=== PATIENT | female | born 1980 | race Caucasian/White ===

== ENCOUNTER → 2020-03-16 | Outpatient (CLI) | payer BC | END | disposition home or self-care (01) | LOC: COVID19 15:35 | PROVIDERS: ATTEND Family Medicine | DX: U07.1 COVID-19 (principal) ==

== ENCOUNTER → 2025-03-13 | Outpatient (CLI) | payer BC ==
[2025-03-13 17:40] LABS: MEAN CELL VOLUME 71.8 fl (81.0-99.0); MEAN CORPUSCULAR HGB 20.9 pg (27.0-31.0); MEAN PLATELET VOLUME 8.7 fl (9.6-12.3); NUCLEATED RED BLOOD CELL 0.0 % (0.0-0.0); NUCLEATED RED BLOOD CELL 0.0 10*3/uL (0.0-0.0); PLATELET COUNT AUTOMATED 417.0 10*3/uL (130-400); RED CELL DISTRI WIDTH 16.5 % (0-14.5)
[2025-03-13 18:18] LABS: BUN 11 mg/dl (9-23); CPK 64 U/L (34-171); SGPT/ALT 10 U/L (5-49)
[2025-03-13 18:21] LABS: VITAMIN D, 25-HYDROXY 15.4 ng/mL (30-100)
[2025-03-14 15:07] LABS: ANTI-DSDNA ANTIBODIES 1 IU/mL (0-9)
== END | disposition home or self-care (01) ==
LOC: LAB 16:49
PROVIDERS: ATTEND Family Medicine
DX: R60.0 Localized edema (principal); M25.50 Pain in unspecified joint; M79.12 Myalgia of auxiliary muscles, head and neck